=== PATIENT | male | born 1960 | race Caucasian/White ===

== ENCOUNTER 2016-09-29 07:34 | Day surgery (SDC) | payer OTHER ==
[~2016-09-29] VITALS: Ht 162.6 cm; Wt 84.6 kg
[2016-09-29] MEDS ORDERED: MELO-109 PO (08:08)
[2016-09-29] MEDS ORDERED: OLAN7.5T5 PO (08:08)
[2016-09-29] MEDS ORDERED: ASPI-535 PO (08:08)
[2016-09-29] MEDS ORDERED: LORA10TA3 PO (08:08)
[2016-09-29] MEDS ORDERED: LISI20TA11 PO (08:08)
[2016-09-29] MEDS ORDERED: OMEP20CA16 PO (08:08)
[2016-09-29] MEDS ORDERED: HYDR12.58 PO (08:08)
[2016-09-29] MEDS ORDERED: METO25TA4 PO (08:08)
[2016-09-29] MEDS ORDERED: DIAZ5TAB4 PO (08:08)
[2016-09-29] MEDS ORDERED: HYDR-3011 PO (08:08)
[2016-09-29] MEDS ORDERED: SIMV-39 PO (08:08)
[2016-09-29] MEDS ORDERED: FLUO20CA22 PO (08:08)
[2016-09-29] MEDS ORDERED: MIDAZOLAM 1 MG/ML 2 ML INJ ONE (08:56)
[2016-09-29] MEDS ORDERED: LIDOCAINE 2% (SDV) 5 ML INJ ONE (08:56)
[2016-09-29] MEDS ORDERED: PROPOFOL 40 ML ONE (08:56)
[2016-09-29 09:17] VITALS: BP 90/61; PULSE 76; RESP 15
--- NOTE | 2016-09-29 11:46 | GILP ---
DATE OF PROCEDURE: 09/29/2016 PROCEDURE PERFORMED: 1. Esophagogastroduodenoscopy and biopsy. 2. Colonoscopy. SURGEON: Dr. Steve Núñez. PREOPERATIVE DIAGNOSES: 1. Positive occult blood in stool. 2. Abdominal pain and chronic heartburn. POSTOPERATIVE DIAGNOSES: 1. Hiatal hernia. 2. Gastroesophageal reflux disease. 3. Gastritis with erosions. 4. Gastric mucosal biopsies were taken for Helicobacter pylori test. 5. Colonoscopy all the way to the cecum. 6. Internal and external hemorrhoids. 7. No colon neoplasm was identified. INDICATION: Mr. Lloyd Szymanski is a 55-year-old male patient who had upper abdominal pain and chronic heartburn not responding to therapy. He also needed a screening colonoscopy. The patient was noted to have positive occult blood in stool. The procedures and possible complications were well explained to the patient. The patient understood and consented to the procedures. DESCRIPTION OF PROCEDURE: Under influence of anesthesia, the gastroscope was carefully introduced into the esophagus. Under direct vision, it was advanced to the stomach, into the pylorus, into the duodenal bulb, and descending duodenum. FINDINGS: Esophagus: The patient had hiatal hernia and gastroesophageal reflux disease. Stomach: He had gastritis. Gastric mucosal biopsies were taken for H pylori test. Duodenum was normal. The colonoscope was carefully introduced in the rectum. Under direct vision, it was advanced all the way to the cecum. FINDINGS: The patient had internal and external hemorrhoids. No colitis or neoplasm was identified. He tolerated the procedures very well. There was no complication from the procedures. At the end of the procedures, he was awake with stable vital signs and he was discharged home in care of his family. IMPRESSION: Please see postop diagnoses. PLAN: 1. Continue omeprazole 40 mg p.o. in the morning. 2. Add Zantac 300 mg p.o. at bedtime. 3. Await H pylori test report. 4. Next screening colonoscopy in 10 years. Dictated By: MD NIKOLAS Mckeon/jori/chidi /Document#: [id number] CC: Steve Núñez MD;*EndCC*
== END 2016-09-29 10:44 | disposition home or self-care (01) ==
LOC: GIL 07:34
PROVIDERS: ATTEND Internal Medicine Gastroenterology
DX: K92.1 Melena (principal); K21.9 Gastro-esophageal reflux disease without esophagitis; K29.60 Other gastritis without bleeding; K44.9 Diaphragmatic hernia without obstruction or gangrene; B96.81 Helicobacter pylori [H. pylori] as the cause of diseases classified elsewhere; K64.4 Residual hemorrhoidal skin tags; K64.8 Other hemorrhoids; I10 Essential (primary) hypertension; E78.5 Hyperlipidemia, unspecified
CPT/HCPCS: 43239; 45378; 87081; J2250; Z7610